=== PATIENT | female | born 1955 | race Caucasian/White ===

== ENCOUNTER 2022-06-02 12:51 | Emergency (ER) | payer MEDICARE, OTHER ==
[~2022-06-02] VITALS: Ht 149.9 cm; Wt 64.0 kg
--- NOTE | 2022-06-02 13:00 | NUR ---
RECEVED PT 67 YRS FEMALE WALKING IN BY CLARY c/o confused and seen poboplearound here
--- NOTE | 2022-06-02 13:53 | NUR ---
DR. SIU SPEAKING WITH DR. PETERSON.
[2022-06-02] MEDS ORDERED: METO-357 PO (14:01)
[2022-06-02] MEDS ORDERED: DULO60CA64 PO (14:01)
[2022-06-02] MEDS ORDERED: OMEP40CA21 PO (14:01)
[2022-06-02] MEDS ORDERED: CELE-85 PO (14:01)
[2022-06-02] MEDS ORDERED: INSU100I4 SQ (14:01)
[2022-06-02] MEDS ORDERED: ESCI10TA PO (14:01)
[2022-06-02] MEDS ORDERED: OLAN7.5T3 PO (14:01)
[2022-06-02] MEDS ORDERED: INSU100I26 SQ (14:01)
[2022-06-02] MEDS ORDERED: LOSA1TAB36 PO (14:01)
[2022-06-02] MEDS ORDERED: DAPA5TAB PO (14:01)
[2022-06-02] MEDS ORDERED: ROSU40TA23 PO (14:01)
[2022-06-02] MEDS ORDERED: ICOS1CAP PO (14:01)
[2022-06-02] MEDS ORDERED: DONE5TAB34 PO (14:01)
[2022-06-02 14:13] LABS: BASOPHILS % (AUTO) 0.5 % (0.0-2.0); EOSINOPHILS % (AUTO) 2.9 % (0.0-6.0); HEMATOCRIT 37 % (33-45); HEMOGLOBIN 11.8 g/dL (11.5-14.8); LYMPHOCYTES # (AUTO) 1.9 K/uL (0.8-4.8); LYMPHOCYTES % (AUTO) 20.9 % (20.0-44.0); MEAN CORPUSCULAR HGB CONC 32 g/dl (31.0-36.0); MEAN CORPUSCULAR VOLUME 94 fL (82-100); MONOCYTES # (AUTO) 0.5 K/uL (0.1-1.30); MONOCYTES % (AUTO) 5.2 % (2.0-12.0); NEUTROPHILS # (AUTO) 6.5 K/uL (1.8-8.9); NEUTROPHILS % (AUTO) 70.5 % (43.0-81.0); PLATELET COUNT (AUTO) 238 K/uL (150-450); RED BLOOD CELL COUNT(AUTO) 3.93 MIL/uL (4.0-5.2); WHITE BLOOD COUNT (AUTO) 9.2 K/uL (4.3-11.0)
[2022-06-02 14:16] LABS: BILIRUBIN,URINE NEGATIVE (NEGATIVE); COLOR,URINE YELLOW (YELLOW); LEUKOCYTE ESTERASE ,URINE NEGATIVE (NEGATIVE); NITRITE, URINE NEGATIVE (NEGATIVE); PH,URINE 6.5 (5.0-8.0); PROTEIN,URINE NEGATIVE (NEGATIVE); UGLUCOSE >=1000 mg/dL (NEGATIVE); UROBILINOGEN,URINE 0.2 EU/dL (0.2)
--- NOTE | 2022-06-02 14:19 | NUR ---
PER NURSING ROTARY DRILL RIG OPERATOR, PT COORDINATING TRANSFER TO [place]
[2022-06-02 14:21] LABS: BACTERIA,URINE Rare /HPF (None Seen); RBC,URINE 0-2 /HPF (0-2); SQUAMOUS EPITHELIAL CELL,UR Few /HPF (None Seen); WBC,URINE 0-2 /HPF (0-3)
--- NOTE | 2022-06-02 14:30 | NUR ---
UA SENT TO LAB
[2022-06-02 14:44] LABS: ALBUMIN 3.9 g/dL (3.4-5.0); BILIRUBIN,DIRECT 0.1 mg/dL (0.0-0.2); BILIRUBIN,TOTAL 0.4 mg/dL (0.2-1.0); CALCIUM, SERUM 9.6 mg/dL (8.5-10.1); CREATININE 1.2 mg/dL (0.6-1.3); POTASSIUM 4.1 mmol/L (3.5-5.1); TOTAL PROTEIN, SERUM 7.1 g/dL (6.4-8.2)
--- NOTE | 2022-06-02 14:45 | NUR ---
BLOOD DROW BY LAB TACH
--- NOTE | 2022-06-02 14:54 | NUR ---
ELIZABETH CIFUENTES SENT TO LAB
[2022-06-02 15:13] LABS: ALCOHOL, BLOOD < 3 mg/dL (0-0)
--- NOTE | 2022-06-02 15:13 | NUR ---
CLARY AT BED SIDE ( [facility] . [facility] )
[2022-06-02 15:19] LABS: ACETAMINOPHEN 0 ug/ml (10-30)
[2022-06-02] MEDS ORDERED: IV NS 0.9% 1,000 ML IV ONE (15:30)
[2022-06-02] MEDS ORDERED: INSULIN REGULAR, HUMAN 100 UNIT/ML 10 ML VIAL SQ ONE (15:30)
--- NOTE | 2022-06-02 15:41 | NUR ---
ACCU CHECK DONE 366 mg/dl
--- NOTE | 2022-06-02 15:46 | NUR ---
JUNI OBRIEN [phone]
--- NOTE | 2022-06-02 15:48 | NUR ---
MOVE SHEET SUBMITTED.
--- NOTE | 2022-06-02 16:50 | NUR ---
ACCU CHECK DONE 249MG/DL
--- NOTE | 2022-06-02 18:29 | NUR ---
RESTIND AT THIS TIME WATING for medicale bed resting and asleepy
--- NOTE | 2022-06-02 19:15 | NUR ---
shahram from crisis team on her way
--- NOTE | 2022-06-02 19:15 | NUR ---
REC'D REPORT FROM MILLA HARRISON FOR CHEKO
--- NOTE | 2022-06-02 19:23 | NUR ---
HAND OFF TO BRYCE LOYOLA
--- NOTE | 2022-06-02 19:41 | NUR ---
astrid VARGAS at bed side
--- NOTE | 2022-06-02 20:00 | NUR ---
[facility] CALLED FOR TRANSPORT ETA 30 MINS TO [facility]
--- NOTE | 2022-06-02 20:27 | NUR ---
PER HOUSE SUP, PT WILL NOT BE TRANSFERRED THIS EVENING.
--- NOTE | 2022-06-02 22:00 | NUR ---
PT EATING AND SITTING IN BED QUIETLY. NEEDS MET
--- NOTE | 2022-06-03 00:43 | NUR ---
PT SLEEPING, ATTACHED TO MONITOR. VSS
--- NOTE | 2022-06-03 03:21 | NUR ---
PT SLEEPING, ATTACHED TO MONITOR AND POX. VSS
--- NOTE | 2022-06-03 07:45 | NUR ---
RECEIVED PT FROM MARTINEZ RN PT ON 5149 AND WATELISA FOR ROOM AWAKE AND ALERT [facility]
[2022-06-03 09:30] VITALS: BP 125/65
--- NOTE | 2022-06-03 10:13 | NUR ---
[facility] GPS NUMBER FOR REPORT [phone] 140-B GPS.
--- NOTE | 2022-06-03 10:13 | NUR ---
[facility] ETA 45 MINS
--- NOTE | 2022-06-03 10:20 | NUR ---
REPORT GIVEN TO ASAEL LOYOLA FOR CHEKO
--- NOTE | 2022-06-03 10:45 | NUR ---
DAUGHTER JENNIFER THREATENED TO TAKE PATIENT HOME EVEN AFTER TELLING HER THAT PATIENT IS GOING TO [facility] ON A 5150 HOLD. SECURITY CALLED FOR ASSISTANCE
--- NOTE | 2022-06-03 11:09 | NUR ---
NEW ETA 30 MINS.
--- NOTE | 2022-06-03 11:34 | NUR ---
CLARY AT BED SIDE ASKING IF CAN TAKE PT HOME PT ON 5150 FOR GRAVEL DISABLED 06/02/2022 AT 2002 PM
--- NOTE | 2022-06-03 12:18 | NUR ---
ACCU CHECH DONE BS 481MG/LD DR. LYNN NOTEFY ORDER 10 UITE SQ GIVEN TRANSFER TO [facility] [facility] VIA [facility]
[2022-06-03] MEDS ORDERED: INSULIN REGULAR, HUMAN 100 UNIT/ML 10 ML VIAL ONE (12:24)
[2022-06-03] MEDS ORDERED: INSULIN REGULAR, HUMAN 100 UNIT/ML 10 ML VIAL SQ ONE (12:30)
== END 2022-06-03 12:38 ==
LOC: ER 13:03
DX: F03.90 Unspecified dementia, unspecified severity, without behavioral disturbance, psychotic disturbance, mood disturbance, and anxiety (principal); N28.9 Disorder of kidney and ureter, unspecified; E11.65 Type 2 diabetes mellitus with hyperglycemia; Z79.4 Long term (current) use of insulin; Z79.899 Other long term (current) drug therapy; Z20.822 Contact with and (suspected) exposure to COVID-19
CPT/HCPCS: 99285; 96372 ×2; 96360; 93005; 71045; 85025; 80048; 80076; 81001; 36415; 84484; 82962 ×2; 87426; 80143; 80320; 80307; J7030; J1815; C9803; G0480